=== PATIENT | male | born 1940 | race Caucasian/White ===

== ENCOUNTER 2016-09-19 09:51 | Emergency (ER) | payer OTHER ==
[~2016-09-19] VITALS: Ht 185.4 cm; Wt 113.4 kg
[~2016-09-19 09:51] MED LIST: ECO81 PO; GLIP10TA74 PO; INSU100V9 SUBCUT; LISI-600 PO; METF-510 PO; SIMV20TA6 PO; TERA5CAP58 PO; TRAM100T13 PO
[2016-09-19 09:55] VITALS: BP_SYST 156
--- NOTE | 2016-09-19 10:00 | NUR ---
Pt placed to ER bed 05 and report given to JACQUELINE Olmstead.
--- NOTE | 2016-09-19 10:05 | NUR ---
Patient in stable condition, alert and oriented x4. States has had right foot blistering for one month that began to hurt this AM. Right foot (inner lateral) has redness with white/brown blistering and swelling, blister draining small amount of serosangenous fluid. Patient arrived to ER with gauze and tape dressing he placed at home, removed prior to observation. Bilateral lower extremites have 3+ pitting edema. Bilateral pedal pulses present and strong, able to wiggle all fingers freely, sensation present, no numbess or tingling per patient. No other complaints/injuries per patient or noted.
--- NOTE | 2016-09-19 10:16 | NUR ---
ER Dr. Guerrero at bedside examining patient.
[2016-09-19] MEDS ORDERED: HYDR-4100 PO (10:30)
--- NOTE | 2016-09-19 10:30 | NUR ---
Medication reconciliation completed with information provided by family. Any prior medication reconciliation on file was reviewed and corrected.
[2016-09-19 10:55] LABS: BASOPHILS # (AUTO) 0.1 K/uL (0.0-0.2); BASOPHILS % (AUTO) 1.6 % (0.0-2.0); EOSINOPHILS # (AUTO) 0.1 K/uL (0.0-0.4); EOSINOPHILS % (AUTO) 1.4 % (0.0-4.0); HEMATOCRIT 37.4 % (36-54); HEMOGLOBIN 12.5 g/dL (14.0-18.0); LYMPHOCYTES # (AUTO) 0.9 K/uL (1.0-5.5); LYMPHOCYTES % (AUTO) 12.3 % (20.5-51.5); MEAN CORPUSCULAR HEMOGLOBIN 29 pg (27-31); MEAN CORPUSCULAR HGB CONC 33 % (32-36); MEAN CORPUSCULAR VOLUME 86 fL (79.0-98.0); MONOCYTES # (AUTO) 0.6 K/uL (0.0-1.0); MONOCYTES % (AUTO) 8.6 % (1.7-9.3); NEUTROPHILS # (AUTO) 5.6 K/uL (1.8-7.7); NEUTROPHILS % (AUTO) 76.1 % (40.0-70.0); PLATELET COUNT (AUTO) 143 K/uL (130-430); RED BLOOD CELL COUNT(AUTO) 4.36 MIL/uL (4.2-6.2); RED CELL DISTRIBUTION WIDTH 14.1 % (9.0-15.0); WHITE BLOOD COUNT (AUTO) 7.3 K/uL (4.8-10.8)
[2016-09-19 11:00] LABS: ACETONE, SERUM SMALL (NEGATIVE)
[2016-09-19 11:01] LABS: ANION GAP 7 (5-15); C-REACTIVE PROTEIN QUANT 5.2 mg/dL (0-0.5); CALCIUM 9.2 mg/dL (8.4-11.0); CHLORIDE 98 mmol/L (98-107); CREATININE 1.61 mg/dL (0.55-1.30); GLUCOSE 372 mg/dL (70-99); POTASSIUM 5.3 mmol/L (3.5-5.1); SODIUM SERUM 130 mmol/L (136-145); UREA NITROGEN, BLOOD 32 mg/dL (8-21)
[2016-09-19 11:54] LABS: ERYTHROCYTE SEDIMENTATION RATE 18 MM/HR (0-15)
[2016-09-19] MEDS ORDERED: INSULIN REGULAR, HUMAN 10 UNITS/0.1 ML INJ SUBCUT ONE (12:00)
[2016-09-19] MEDS ORDERED: INSULIN REGULAR, HUMAN 10 UNITS/0.1 ML INJ IVP ONE (12:15)
--- NOTE | 2016-09-19 12:30 | NUR ---
Per Dr Guerrero's verbal order, right foot (inner lateral with blisters) cleansed with betadine, gently patted dry, covered with non sticking foam dressing, covered with kerlix wrap and secured. No active bleeding or drainage at this time. Blister culture per Dr. Guerrero's order.
--- NOTE | 2016-09-19 13:17 | NUR ---
Patient provided with diabetic food tray due to being hungry, blood sugar rechecked prior to (see intervention). Dr. Guerrero notified of blood sugar-stated okay to eat diabetic tray.
[2016-09-19 13:45] VITALS: BP_SYST 145
--- NOTE | 2016-09-19 13:45 | NUR ---
Patient given written and verbal discharge instructions and verbalizes understanding. ER MD discussed with patient the results and treatment provided. Patient in stable condition. ID arm band removed. IV catheter removed intact and dressing applied, no active bleeding. Rx of Lantus, Augementin and Septra given. Patient educated on pain management and to follow up with PMD and strand galvanizer in 1-2 days. Opportunity for questions provided and answered.
== END 2016-09-19 13:45 | disposition home or self-care (01) ==
LOC: SED 09:51
DX: L03.115 Cellulitis of right lower limb (principal); E11.65 Type 2 diabetes mellitus with hyperglycemia; E87.5 Hyperkalemia; I10 Essential (primary) hypertension; Z79.4 Long term (current) use of insulin; Z88.5 Allergy status to narcotic agent; Z87.891 Personal history of nicotine dependence
CPT/HCPCS: 36415; 73630; 80048; 82009; 82962; 85025; 85651; 86140; 96374; 99285; J1815

== ENCOUNTER 2016-09-27 23:11 | Emergency (ER) | payer OTHER ==
[~2016-09-27] VITALS: Ht 185.4 cm; Wt 113.4 kg
[~2016-09-27 23:11] MED LIST changes: +BRE5 PO; +GLIP5TAB76 PO; +HYDR-4100 PO; +METF-305 PO; +NIFE-2 PO
[2016-09-27 23:30] VITALS: BP 128/76; PULSE 83; RESP 17; TEMP 98; O2SAT 99
--- NOTE | 2016-09-27 23:30 | NUR ---
Placed in room 02 . Placed on pvc monitor, blood pressure machine and pulse oximeter. To gown for exam. Side rails up. Report given to JACQUELINE Jarvis.
--- NOTE | 2016-09-27 23:35 | NUR ---
PATIENT AAO X4, SITTING IN BED, BROUGHT IN BY SON FOR C/O PAIN TO BACK OF NECK X 1 DAY. PATIENT STATED HE TOOK NORCO 5/325 MG FOR LEFT CHRONIC SHOULDER PAIN AND NECK PAIN. NO RELIEF. DENIES N/V/D. DENIES CHEST PAIN. DENIES SHORTNESS OF BREATH. NO ACUTE DISTRESS NOTED. WILL CONTINUE TO MONITOR.
--- NOTE | 2016-09-27 23:45 | NUR ---
MARQUES Fontenot at bedside examining patient.
[2016-09-28 00:21] LABS: BASOPHILS # (AUTO) 0.1 K/uL (0.0-0.2); BASOPHILS % (AUTO) 0.8 % (0.0-2.0); EOSINOPHILS # (AUTO) 0.1 K/uL (0.0-0.4); EOSINOPHILS % (AUTO) 1.5 % (0.0-4.0); HEMATOCRIT 37.5 % (36-54); HEMOGLOBIN 12.4 g/dL (14.0-18.0); LYMPHOCYTES # (AUTO) 1.2 K/uL (1.0-5.5); LYMPHOCYTES % (AUTO) 14.1 % (20.5-51.5); MEAN CORPUSCULAR HEMOGLOBIN 29 pg (27-31); MEAN CORPUSCULAR HGB CONC 33 % (32-36); MEAN CORPUSCULAR VOLUME 87 fL (79.0-98.0); MONOCYTES # (AUTO) 0.7 K/uL (0.0-1.0); MONOCYTES % (AUTO) 7.7 % (1.7-9.3); NEUTROPHILS # (AUTO) 6.7 K/uL (1.8-7.7); NEUTROPHILS % (AUTO) 75.9 % (40.0-70.0); PLATELET COUNT (AUTO) 204 K/uL (130-430); RED BLOOD CELL COUNT(AUTO) 4.32 MIL/uL (4.2-6.2); RED CELL DISTRIBUTION WIDTH 13.6 % (9.0-15.0); WHITE BLOOD COUNT (AUTO) 8.8 K/uL (4.8-10.8)
[2016-09-28 00:42] LABS: ANION GAP 6 (5-15); CALCIUM 9.4 mg/dL (8.4-11.0); CHLORIDE 102 mmol/L (98-107); CREATININE 1.92 mg/dL (0.55-1.30); GLUCOSE 272 mg/dL (70-99); SODIUM SERUM 134 mmol/L (136-145); UREA NITROGEN, BLOOD 44 mg/dL (8-21)
[2016-09-28 00:51] LABS: ALANINE AMINOTRANSFERASE 22 U/L (12-78); ALBUMIN 3.5 g/dL (3.4-4.8); ASPARTATE AMINOTRANSFERASE 15 U/L (10-37); TOTAL BILIRUBIN 0.3 mg/dL (0.0-1.0); TOTAL PROTEIN, SERUM 7.1 g/dL (6.4-8.3)
[2016-09-28 00:52] LABS: POTASSIUM 5.5 mmol/L (3.5-5.1)
[2016-09-28] MEDS ORDERED: NACL 0.9% 1,000 ML IV ONE (01:00)
[2016-09-28] MEDS ORDERED: LORazepam 2 MG/ML VIAL (FOR ER USE) IVP ONE (02:45)
[2016-09-28 03:36] VITALS: BP 134/76; PULSE 86; RESP 17; TEMP 98; O2SAT 99
--- NOTE | 2016-09-28 03:36 | NUR ---
Patient given written and verbal discharge instructions and verbalizes understanding. ER MD discussed with patient the results and treatment provided. Patient in stable condition. ID arm band removed. IV catheter removed intact and dressing applied, no active bleeding. Patient educated on pain management and to follow up with PMD. Pain Scale 2/10. Opportunity for questions provided and answered.
== END 2016-09-28 03:30 | disposition home or self-care (01) ==
LOC: SED 23:11
DX: G89.29 Other chronic pain (principal); M25.512 Pain in left shoulder; M54.2 Cervicalgia; E11.9 Type 2 diabetes mellitus without complications; I10 Essential (primary) hypertension; Z79.4 Long term (current) use of insulin; Z79.82 Long term (current) use of aspirin; Z88.5 Allergy status to narcotic agent
CPT/HCPCS: 36415; 80053; 84484; 85025; 93005; 96361; 96374; 99285; J2060; J7030

== ENCOUNTER 2020-11-19 08:47 | Inpatient (IN) | payer OTHER, MEDICAID, SELFPAY ==
[~2020-11-19] VITALS: Ht 182.9 cm; Wt 70.3 kg
[~2020-11-19 08:47] MED LIST changes: -BRE5 PO; +GLIP10TA3 PO; -GLIP10TA74 PO; -GLIP5TAB76 PO; +HYDR-3927 PO; -HYDR-4100 PO; -LISI-600 PO; +LISI20TA30 PO; -METF-305 PO; -METF-510 PO; +METF-518 PO; -NIFE-2 PO; +SIMV-43 PO; -SIMV20TA6 PO; +TERA5CAP4 PO; -TERA5CAP58 PO; -TRAM100T13 PO; +TRAM100T34 PO
[2020-11-19 08:50] VITALS: BP_SYST 109
[2020-11-19 09:22] LABS: BASOPHILS % (AUTO) 0.2 % (0.0-2.0); EOSINOPHILS % (AUTO) 0.1 % (0.0-4.0); HEMATOCRIT 40.1 % (36-54); HEMOGLOBIN 13.4 g/dL (14.0-18.0); LYMPHOCYTES # (AUTO) 0.7 K/uL (1.0-5.5); LYMPHOCYTES % (AUTO) 7.8 % (20.5-51.5); MEAN CORPUSCULAR HEMOGLOBIN 30 pg (27-31); MEAN CORPUSCULAR HGB CONC 33 % (32-36); MEAN CORPUSCULAR VOLUME 90 fL (79.0-98.0); MONOCYTES # (AUTO) 0.4 K/uL (0.0-1.0); MONOCYTES % (AUTO) 4.9 % (1.7-9.3); NEUTROPHILS # (AUTO) 7.3 K/uL (1.8-7.7); PLATELET COUNT (AUTO) 136 K/uL (130-430); RED BLOOD CELL COUNT(AUTO) 4.45 MIL/uL (4.2-6.2); RED CELL DISTRIBUTION WIDTH 14.3 % (9.0-15.0); WHITE BLOOD COUNT (AUTO) 8.4 K/uL (4.8-10.8)
[2020-11-19] MEDS ORDERED: PANTOPRAZOLE SODIUM 40 MG/VIAL (PROTONIX) IVP ONE ×2 (09:30→12:30)
[2020-11-19] MEDS ORDERED: ONDANSETRON HCL 4 MG/2 ML VIAL IVP ONE (09:30)
[2020-11-19] MEDS ORDERED: FERR236T3 PO (09:34)
[2020-11-19] MEDS ORDERED: CALC200T28 PO (09:34)
[2020-11-19] MEDS ORDERED: ASCO500T20 PO (09:34)
[2020-11-19] MEDS ORDERED: SSREG SUBCUT (09:34)
[2020-11-19] MEDS ORDERED: GLIP5TAB13 PO (09:34)
[2020-11-19] MEDS ORDERED: TAMS-11 PO (09:34)
[2020-11-19] MEDS ORDERED: OMEG-158 PO (09:34)
[2020-11-19] MEDS ORDERED: MULT-1117 PO (09:34)
[2020-11-19] MEDS ORDERED: ACET325T53 PO (09:34)
[2020-11-19] MEDS ORDERED: MEGE20TA6 PO (09:34)
[2020-11-19] MEDS ORDERED: BISA10SU61 RC (09:34)
[2020-11-19] MEDS ORDERED: DOCU250C14 PO (09:34)
[2020-11-19] MEDS ORDERED: FAMO20VI IV (09:34)
[2020-11-19] MEDS ORDERED: TRAM50TA2 PO (09:34)
[2020-11-19 09:38] LABS: ANION GAP 14 (5-15); CALCIUM 9.8 mg/dL (8.4-11.0); CHLORIDE 104 mmol/L (98-107); CREATININE 1.77 mg/dL (0.55-1.30); GLUCOSE 251 mg/dL (70-99); POTASSIUM 3.9 mmol/L (3.5-5.1); SODIUM SERUM 140 mmol/L (136-145); UREA NITROGEN, BLOOD 49 mg/dL (8-21)
[2020-11-19 09:46] LABS: ALANINE AMINOTRANSFERASE 26 U/L (12-78); ALBUMIN 3.2 g/dL (3.4-4.8); ASPARTATE AMINOTRANSFERASE 16 U/L (10-37); BILIRUBIN,DIRECT 0.3 mg/dL (0.0-0.3); LIPASE 32 U/L (73-393)
[2020-11-19 09:53] LABS: TOTAL BILIRUBIN 1.3 mg/dL (0.0-1.0)
[2020-11-19 10:00] LABS: INR 1.1 (0.80-1.20); PROTHROMBIN TIME 10.8 SECS (9.5-12.5)
[2020-11-19] MEDS ORDERED: KCL 20 mEq in D5/0.45NS 1000mL 1,000 ML IV ONE (10:15)
[2020-11-19] MEDS ORDERED: BISACODYL 10 MG/SUPPOSITORY RC ONE (12:30)
[2020-11-19] MEDS ORDERED: MINERAL OIL 133 ML ENEMA RC ONE (12:30)
[2020-11-19 14:17] VITALS: BP_SYST 144
[2020-11-19] MEDS ORDERED: BISACODYL 10 MG/SUPPOSITORY RC PRN (17:45)
[2020-11-19] MEDS ORDERED: ACETAMINOPHEN 325 MG TABLET PO PRN (17:45)
[2020-11-19] MEDS: KCL 20 mEq in 0.45% NS 1000 mL 1,000 ML IV SCH ×2 (18:00→22:15)
[2020-11-19] MEDS: LUBIPROSTONE 24 MCG CAPSULE PO SCH (21:00)
[2020-11-19] MEDS: TERAZOSIN HCL 5 MG CAPSULE (HYTRIN) PO SCH (21:00)
[2020-11-19 21:39] VITALS: BP_SYST 116
[2020-11-19] MEDS ORDERED: KCL 20 mEq in 0.45% NS 1000 mL 1,000 ML IV ONE (22:11)
[2020-11-19] MEDS: INSULIN REGULAR, HUMAN 100 UNITS/ML, 10 ML VIAL (humuLIN R) SUBCUT PRN (22:23)
[2020-11-20 00:55] VITALS: BP_SYST 118
[2020-11-20] MEDS: KCL 20 mEq in 0.45% NS 1000 mL 1,000 ML IV SCH ×3 (04:00→21:53)
[2020-11-20] MEDS: INSULIN REGULAR, HUMAN 100 UNITS/ML, 10 ML VIAL (humuLIN R) SUBCUT PRN ×3 (06:32→21:55)
[2020-11-20 06:56] LABS: INR 1.1 (0.80-1.20); PROTHROMBIN TIME 11.3 SECS (9.5-12.5)
[2020-11-20 06:59] LABS: BASOPHILS % (AUTO) 0.1 % (0.0-2.0); EOSINOPHILS % (AUTO) 0.1 % (0.0-4.0); HEMATOCRIT 37.7 % (36-54); HEMOGLOBIN 12.9 g/dL (14.0-18.0); LYMPHOCYTES % (AUTO) 11.9 % (20.5-51.5); MEAN CORPUSCULAR HEMOGLOBIN 31 pg (27-31); MEAN CORPUSCULAR HGB CONC 34 % (32-36); MEAN CORPUSCULAR VOLUME 90 fL (79.0-98.0); MONOCYTES # (AUTO) 0.6 K/uL (0.0-1.0); MONOCYTES % (AUTO) 7.4 % (1.7-9.3); NEUTROPHILS # (AUTO) 6.5 K/uL (1.8-7.7); NEUTROPHILS % (AUTO) 80.5 % (40.0-70.0); PLATELET COUNT (AUTO) 161 K/uL (130-430); RED CELL DISTRIBUTION WIDTH 14.6 % (9.0-15.0); WHITE BLOOD COUNT (AUTO) 8.1 K/uL (4.8-10.8)
[2020-11-20 07:33] LABS: ALANINE AMINOTRANSFERASE 18 U/L (12-78); ANION GAP 13 (5-15); ASPARTATE AMINOTRANSFERASE 12 U/L (10-37); CALCIUM 9.2 mg/dL (8.4-11.0); CHLORIDE 107 mmol/L (98-107); CREATININE 1.48 mg/dL (0.55-1.30); GLUCOSE 202 mg/dL (70-99); PHOSPHORUS 2.9 mg/dL (2.7-4.5); SODIUM SERUM 141 mmol/L (136-145); TOTAL BILIRUBIN 1.3 mg/dL (0.0-1.0); UREA NITROGEN, BLOOD 46 mg/dL (8-21)
[2020-11-20 08:03] VITALS: BP_SYST 145
[2020-11-20] MEDS: TAMSULOSIN HCL 0.4 MG CAP PO SCH (08:32)
[2020-11-20] MEDS: MULTIVITAMINS TAB 1 TABLET PO SCH (08:32)
[2020-11-20] MEDS: LUBIPROSTONE 24 MCG CAPSULE PO SCH ×2 (08:32→21:53)
[2020-11-20] MEDS: BISACODYL 10 MG/SUPPOSITORY RC SCH (08:33)
[2020-11-20] MEDS: ASCORBIC ACID 500 MG TABLET PO SCH (08:33)
[2020-11-20] MEDS: DOCUSATE SODIUM 250 MG CAPSULE PO SCH (08:33)
[2020-11-20] MEDS: PANTOPRAZOLE SODIUM 40 MG/VIAL (PROTONIX) IVP SCH (08:33)
[2020-11-20] MEDS ORDERED: MAGNESIUM CITRATE 300 ML ORAL SOLUTION PO ONE (09:45)
[2020-11-20] MEDS ORDERED: LACTULOSE 20 GM/30 ML UDC PO ONE (09:45)
[2020-11-20] MEDS ORDERED: BISACODYL 5 MG TABLET.DR (DULCOLAX) PO ONE (09:45)
[2020-11-20 12:05] VITALS: BP_SYST 136
[2020-11-20] MEDS: LACTULOSE 20 GM/30 ML UDC PO SCH ×2 (14:52→21:52)
[2020-11-20 16:13] VITALS: BP_SYST 128
[2020-11-20 21:00] VITALS: BP_SYST 129
[2020-11-20] MEDS: TERAZOSIN HCL 5 MG CAPSULE (HYTRIN) PO SCH (21:53)
[2020-11-21 02:28] VITALS: BP_SYST 120
[2020-11-21] MEDS: INSULIN REGULAR, HUMAN 100 UNITS/ML, 10 ML VIAL (humuLIN R) SUBCUT PRN ×2 (06:04→21:48)
[2020-11-21 06:45] LABS: ANION GAP 13 (5-15); CALCIUM 9.4 mg/dL (8.4-11.0); CHLORIDE 107 mmol/L (98-107); CREATININE 1.33 mg/dL (0.55-1.30); GLUCOSE 233 mg/dL (70-99); POTASSIUM 3.8 mmol/L (3.5-5.1); SODIUM SERUM 140 mmol/L (136-145); UREA NITROGEN, BLOOD 44 mg/dL (8-21)
[2020-11-21 06:56] LABS: BASOPHILS % (AUTO) 0.2 % (0.0-2.0); EOSINOPHILS % (AUTO) 0.1 % (0.0-4.0); HEMATOCRIT 40.4 % (36-54); HEMOGLOBIN 13.7 g/dL (14.0-18.0); LYMPHOCYTES # (AUTO) 1.1 K/uL (1.0-5.5); LYMPHOCYTES % (AUTO) 12.8 % (20.5-51.5); MEAN CORPUSCULAR HEMOGLOBIN 31 pg (27-31); MEAN CORPUSCULAR HGB CONC 34 % (32-36); MEAN CORPUSCULAR VOLUME 90 fL (79.0-98.0); MONOCYTES # (AUTO) 0.5 K/uL (0.0-1.0); MONOCYTES % (AUTO) 6.1 % (1.7-9.3); NEUTROPHILS # (AUTO) 7.2 K/uL (1.8-7.7); NEUTROPHILS % (AUTO) 80.8 % (40.0-70.0); PLATELET COUNT (AUTO) 170 K/uL (130-430); RED CELL DISTRIBUTION WIDTH 14.2 % (9.0-15.0); WHITE BLOOD COUNT (AUTO) 8.9 K/uL (4.8-10.8)
[2020-11-21 08:26] VITALS: BP_SYST 102
[2020-11-21] MEDS: LACTULOSE 20 GM/30 ML UDC PO SCH ×3 (09:28→21:36)
[2020-11-21] MEDS: BISACODYL 10 MG/SUPPOSITORY RC SCH (09:28)
[2020-11-21] MEDS: PANTOPRAZOLE SODIUM 40 MG/VIAL (PROTONIX) IVP SCH (09:28)
[2020-11-21] MEDS: TAMSULOSIN HCL 0.4 MG CAP PO SCH (09:29)
[2020-11-21] MEDS: MULTIVITAMINS TAB 1 TABLET PO SCH (09:29)
[2020-11-21] MEDS: ASCORBIC ACID 500 MG TABLET PO SCH (09:29)
[2020-11-21] MEDS: DOCUSATE SODIUM 250 MG CAPSULE PO SCH (09:29)
[2020-11-21] MEDS: LUBIPROSTONE 24 MCG CAPSULE PO SCH ×2 (09:29→21:36)
[2020-11-21 12:14] VITALS: BP_SYST 98
[2020-11-21] MEDS: KCL 20 mEq in 0.45% NS 1000 mL 1,000 ML IV SCH ×2 (15:56→20:00)
[2020-11-21 16:06] VITALS: BP_SYST 101
[2020-11-21 21:00] VITALS: BP_SYST 135
[2020-11-21] MEDS: ONDANSETRON HCL 4 MG/2 ML VIAL IVP SCH (21:36)
[2020-11-21] MEDS: TERAZOSIN HCL 5 MG CAPSULE (HYTRIN) PO SCH (21:42)
[2020-11-22] MEDS: KCL 20 mEq in 0.45% NS 1000 mL 1,000 ML IV SCH ×3 (01:59→22:38)
[2020-11-22] MEDS: INSULIN REGULAR, HUMAN 100 UNITS/ML, 10 ML VIAL (humuLIN R) SUBCUT PRN ×3 (06:37→20:46)
[2020-11-22 07:45] VITALS: BP_SYST 109
[2020-11-22] MEDS: MULTIVITAMINS TAB 1 TABLET PO SCH (09:58)
[2020-11-22] MEDS: TAMSULOSIN HCL 0.4 MG CAP PO SCH (09:58)
[2020-11-22] MEDS: LACTULOSE 20 GM/30 ML UDC PO SCH ×3 (09:58→20:43)
[2020-11-22] MEDS: BISACODYL 10 MG/SUPPOSITORY RC SCH (09:58)
[2020-11-22] MEDS: PANTOPRAZOLE SODIUM 40 MG/VIAL (PROTONIX) IVP SCH (09:58)
[2020-11-22] MEDS: LUBIPROSTONE 24 MCG CAPSULE PO SCH ×2 (09:58→20:43)
[2020-11-22] MEDS: DOCUSATE SODIUM 250 MG CAPSULE PO SCH (09:58)
[2020-11-22] MEDS: ASCORBIC ACID 500 MG TABLET PO SCH (09:58)
[2020-11-22 12:46] VITALS: BP_SYST 95
[2020-11-22 15:49] VITALS: BP_SYST 124
[2020-11-22 20:00] VITALS: BP_SYST 119
[2020-11-22] MEDS: TERAZOSIN HCL 5 MG CAPSULE (HYTRIN) PO SCH (20:43)
[2020-11-23 00:51] VITALS: BP_SYST 105
[2020-11-23] MEDS: INSULIN REGULAR, HUMAN 100 UNITS/ML, 10 ML VIAL (humuLIN R) SUBCUT PRN ×2 (05:40→17:39)
[2020-11-23 08:00] VITALS: BP_SYST 112
[2020-11-23] MEDS: KCL 20 mEq in 0.45% NS 1000 mL 1,000 ML IV SCH ×2 (08:49→18:39)
[2020-11-23] MEDS: PANTOPRAZOLE SODIUM 40 MG/VIAL (PROTONIX) IVP SCH (08:49)
[2020-11-23] MEDS: TAMSULOSIN HCL 0.4 MG CAP PO SCH (09:00)
[2020-11-23] MEDS: ASCORBIC ACID 500 MG TABLET PO SCH (09:00)
[2020-11-23] MEDS: MULTIVITAMINS TAB 1 TABLET PO SCH (09:00)
[2020-11-23] MEDS: LUBIPROSTONE 24 MCG CAPSULE PO SCH ×2 (09:00→21:00)
[2020-11-23] MEDS: DOCUSATE SODIUM 250 MG CAPSULE PO SCH (09:00)
[2020-11-23] MEDS: BISACODYL 10 MG/SUPPOSITORY RC SCH (09:00)
[2020-11-23] MEDS: LACTULOSE 20 GM/30 ML UDC PO SCH ×3 (09:00→21:00)
[2020-11-23 11:29] VITALS: BP_SYST 160
[2020-11-23] MEDS: MINERAL OIL 133 ML ENEMA RC SCH (14:30)
[2020-11-23] MEDS ORDERED: MINERAL OIL 30 ML UDC PO ONE (14:30)
[2020-11-23 16:00] VITALS: BP_SYST 132
[2020-11-23 17:34] VITALS: BP_SYST 137
[2020-11-23 21:00] VITALS: BP_SYST 124
[2020-11-23] MEDS: TERAZOSIN HCL 5 MG CAPSULE (HYTRIN) PO SCH (21:00)
[2020-11-23] MEDS: MINERAL OIL 30 ML UDC PO SCH (21:00)
[2020-11-24 00:12] VITALS: BP_SYST 100
[2020-11-24] MEDS: KCL 20 mEq in 0.45% NS 1000 mL 1,000 ML IV SCH ×2 (06:22→14:35)
[2020-11-24] MEDS: ASCORBIC ACID 500 MG TABLET PO SCH (09:00)
[2020-11-24] MEDS: LUBIPROSTONE 24 MCG CAPSULE PO SCH ×2 (09:00→21:33)
[2020-11-24] MEDS: TAMSULOSIN HCL 0.4 MG CAP PO SCH (09:00)
[2020-11-24] MEDS: MULTIVITAMINS TAB 1 TABLET PO SCH (09:00)
[2020-11-24] MEDS: DOCUSATE SODIUM 250 MG CAPSULE PO SCH (09:00)
[2020-11-24] MEDS: MINERAL OIL 133 ML ENEMA RC SCH (09:00)
[2020-11-24] MEDS: LACTULOSE 20 GM/30 ML UDC PO SCH ×3 (09:00→21:34)
[2020-11-24] MEDS: BISACODYL 10 MG/SUPPOSITORY RC SCH (09:00)
[2020-11-24] MEDS: MINERAL OIL 30 ML UDC PO SCH ×2 (09:00→21:00)
[2020-11-24] MEDS ORDERED: GOLYTELY / COLYTE SOLUTION 4 LITERS NG ONE (09:30)
[2020-11-24] MEDS: METOCLOPRAMIDE HCL 10 MG/2 ML VIAL IVP SCH ×3 (09:30→21:31)
[2020-11-24 11:27] VITALS: BP_SYST 129
[2020-11-24] MEDS: PANTOPRAZOLE SODIUM 40 MG/VIAL (PROTONIX) IVP SCH (12:40)
[2020-11-24 15:45] VITALS: BP_SYST 106
[2020-11-24 20:30] VITALS: BP_SYST 111
[2020-11-24] MEDS: TERAZOSIN HCL 5 MG CAPSULE (HYTRIN) PO SCH (21:33)
[2020-11-25] MEDS: KCL 20 mEq in 0.45% NS 1000 mL 1,000 ML IV SCH ×3 (00:07→19:52)
[2020-11-25 01:32] VITALS: BP_SYST 128
[2020-11-25] MEDS: ONDANSETRON HCL 4 MG/2 ML VIAL IVP SCH (03:51)
[2020-11-25] MEDS: METOCLOPRAMIDE HCL 10 MG/2 ML VIAL IVP SCH (03:56)
[2020-11-25 06:40] LABS: BASOPHILS % (AUTO) 0.3 % (0.0-2.0); EOSINOPHILS # (AUTO) 0.1 K/uL (0.0-0.4); EOSINOPHILS % (AUTO) 1.7 % (0.0-4.0); HEMATOCRIT 35.5 % (36-54); HEMOGLOBIN 12.1 g/dL (14.0-18.0); LYMPHOCYTES # (AUTO) 1.6 K/uL (1.0-5.5); LYMPHOCYTES % (AUTO) 30.9 % (20.5-51.5); MEAN CORPUSCULAR HEMOGLOBIN 30 pg (27-31); MEAN CORPUSCULAR HGB CONC 34 % (32-36); MEAN CORPUSCULAR VOLUME 89 fL (79.0-98.0); MONOCYTES # (AUTO) 0.4 K/uL (0.0-1.0); MONOCYTES % (AUTO) 6.9 % (1.7-9.3); NEUTROPHILS # (AUTO) 3.1 K/uL (1.8-7.7); NEUTROPHILS % (AUTO) 60.2 % (40.0-70.0); PLATELET COUNT (AUTO) 156 K/uL (130-430); RED BLOOD CELL COUNT(AUTO) 3.99 MIL/uL (4.2-6.2); RED CELL DISTRIBUTION WIDTH 13.9 % (9.0-15.0); WHITE BLOOD COUNT (AUTO) 5.2 K/uL (4.8-10.8)
[2020-11-25 06:55] LABS: ANION GAP 16 (5-15); CALCIUM 8.3 mg/dL (8.4-11.0); CHLORIDE 109 mmol/L (98-107); GLUCOSE 115 mg/dL (70-99); PHOSPHORUS 1.8 mg/dL (2.7-4.5); POTASSIUM 4.6 mmol/L (3.5-5.1); SODIUM SERUM 140 mmol/L (136-145); UREA NITROGEN, BLOOD 25 mg/dL (8-21)
[2020-11-25 08:00] VITALS: BP_SYST 120
[2020-11-25] MEDS: LACTULOSE 20 GM/30 ML UDC PO SCH ×3 (09:00→22:14)
[2020-11-25] MEDS: DOCUSATE SODIUM 250 MG CAPSULE PO SCH (09:00)
[2020-11-25] MEDS: BISACODYL 10 MG/SUPPOSITORY RC SCH (09:00)
[2020-11-25] MEDS: TAMSULOSIN HCL 0.4 MG CAP PO SCH (09:00)
[2020-11-25] MEDS: MINERAL OIL 30 ML UDC PO SCH ×2 (09:00→22:14)
[2020-11-25] MEDS: ASCORBIC ACID 500 MG TABLET PO SCH (09:00)
[2020-11-25] MEDS: MULTIVITAMINS TAB 1 TABLET PO SCH (09:00)
[2020-11-25] MEDS: MINERAL OIL 133 ML ENEMA RC SCH (09:00)
[2020-11-25] MEDS: LUBIPROSTONE 24 MCG CAPSULE PO SCH ×2 (09:00→22:14)
[2020-11-25 11:24] VITALS: BP_SYST 114
[2020-11-25] MEDS: PANTOPRAZOLE SODIUM 40 MG/VIAL (PROTONIX) IVP SCH (15:17)
[2020-11-25 15:29] VITALS: BP_SYST 139
[2020-11-25] MEDS ORDERED: fentaNYL CITRATE/PF 100 MCG/2 ML AMP IVP PRN (16:00)
[2020-11-25] MEDS: INSULIN REGULAR, HUMAN 100 UNITS/ML, 10 ML VIAL (humuLIN R) SUBCUT PRN (19:51)
[2020-11-25 20:00] VITALS: BP_SYST 141
[2020-11-25] MEDS: TERAZOSIN HCL 5 MG CAPSULE (HYTRIN) PO SCH (22:15)
[2020-11-26 01:04] VITALS: BP_SYST 101
[2020-11-26] MEDS: KCL 20 mEq in 0.45% NS 1000 mL 1,000 ML IV SCH ×2 (06:25→20:44)
[2020-11-26 06:59] LABS: BASOPHILS % (AUTO) 0.3 % (0.0-2.0); EOSINOPHILS # (AUTO) 0.1 K/uL (0.0-0.4); EOSINOPHILS % (AUTO) 1.8 % (0.0-4.0); HEMATOCRIT 35.2 % (36-54); HEMOGLOBIN 11.8 g/dL (14.0-18.0); LYMPHOCYTES # (AUTO) 1.2 K/uL (1.0-5.5); LYMPHOCYTES % (AUTO) 21.6 % (20.5-51.5); MEAN CORPUSCULAR HEMOGLOBIN 30 pg (27-31); MEAN CORPUSCULAR HGB CONC 34 % (32-36); MEAN CORPUSCULAR VOLUME 89 fL (79.0-98.0); MONOCYTES # (AUTO) 0.5 K/uL (0.0-1.0); MONOCYTES % (AUTO) 8.4 % (1.7-9.3); NEUTROPHILS # (AUTO) 3.9 K/uL (1.8-7.7); NEUTROPHILS % (AUTO) 67.9 % (40.0-70.0); PLATELET COUNT (AUTO) 147 K/uL (130-430); RED BLOOD CELL COUNT(AUTO) 3.94 MIL/uL (4.2-6.2); RED CELL DISTRIBUTION WIDTH 14.2 % (9.0-15.0); WHITE BLOOD COUNT (AUTO) 5.7 K/uL (4.8-10.8)
[2020-11-26 07:01] LABS: INR 1.1 (0.80-1.20); PROTHROMBIN TIME 11.3 SECS (9.5-12.5)
[2020-11-26 08:00] VITALS: BP_SYST 135
[2020-11-26] MEDS: MINERAL OIL 30 ML UDC PO SCH ×2 (08:36→20:31)
[2020-11-26] MEDS: DOCUSATE SODIUM 250 MG CAPSULE PO SCH (08:36)
[2020-11-26] MEDS: TAMSULOSIN HCL 0.4 MG CAP PO SCH (08:36)
[2020-11-26] MEDS: MULTIVITAMINS TAB 1 TABLET PO SCH (08:36)
[2020-11-26] MEDS: LUBIPROSTONE 24 MCG CAPSULE PO SCH ×2 (08:36→20:31)
[2020-11-26] MEDS: LACTULOSE 20 GM/30 ML UDC PO SCH ×3 (08:36→20:31)
[2020-11-26] MEDS: ASCORBIC ACID 500 MG TABLET PO SCH (08:37)
[2020-11-26] MEDS: BISACODYL 10 MG/SUPPOSITORY RC SCH (08:37)
[2020-11-26] MEDS: MINERAL OIL 133 ML ENEMA RC SCH (08:37)
[2020-11-26] MEDS: PANTOPRAZOLE SODIUM 40 MG/VIAL (PROTONIX) IVP SCH (08:49)
[2020-11-26] MEDS ORDERED: SIMETHICONE 40 MG/0.6 ML ML ONE (09:46)
[2020-11-26] MEDS ORDERED: fentaNYL CITRATE/PF 100 MCG/2 ML AMP ONE (09:47)
[2020-11-26] MEDS ORDERED: MIDAZOLAM HCL 5 MG/5 ML VIAL ONE (09:47)
[2020-11-26] MEDS ORDERED: MEPERIDINE 100 MG INJ. 100 MG/ML VIAL ONE (09:47)
[2020-11-26] MEDS ORDERED: POLYETHYLENE GLYCOL 3350, 17 GM/ POWD.PACK PO ONE (12:30)
[2020-11-26 16:30] VITALS: BP_SYST 128
[2020-11-26 20:00] VITALS: BP_SYST 110
[2020-11-26] MEDS: TERAZOSIN HCL 5 MG CAPSULE (HYTRIN) PO SCH (20:31)
[2020-11-27 00:55] VITALS: BP_SYST 108
[2020-11-27] MEDS: KCL 20 mEq in 0.45% NS 1000 mL 1,000 ML IV SCH (05:55)
[2020-11-27 07:57] VITALS: BP_SYST 115
[2020-11-27] MEDS: ASCORBIC ACID 500 MG TABLET PO SCH (08:07)
[2020-11-27] MEDS: MULTIVITAMINS TAB 1 TABLET PO SCH (08:07)
[2020-11-27] MEDS: LACTULOSE 20 GM/30 ML UDC PO SCH ×2 (08:07→15:20)
[2020-11-27] MEDS: PANTOPRAZOLE SODIUM 40 MG/VIAL (PROTONIX) IVP SCH (08:07)
[2020-11-27] MEDS: TAMSULOSIN HCL 0.4 MG CAP PO SCH (08:07)
[2020-11-27] MEDS: LUBIPROSTONE 24 MCG CAPSULE PO SCH (08:07)
[2020-11-27] MEDS: DOCUSATE SODIUM 250 MG CAPSULE PO SCH (08:07)
[2020-11-27] MEDS: MINERAL OIL 30 ML UDC PO SCH (08:08)
[2020-11-27] MEDS: BISACODYL 10 MG/SUPPOSITORY RC SCH (08:19)
[2020-11-27] MEDS ORDERED: POLYETHYLENE GLYCOL 3350, 17 GM/ POWD.PACK PO SCH (09:00)
[2020-11-27] MEDS ORDERED: POLY17PO4 PO (12:28)
[2020-11-27] MEDS ORDERED: Lactulose PO (12:28)
[2020-11-27 12:33] VITALS: BP_SYST 108
[2020-11-27 15:43] VITALS: BP_SYST 101
[2020-11-27 16:13] VITALS: BP_SYST 101
[2020-11-27] MEDS: INSULIN REGULAR, HUMAN 100 UNITS/ML, 10 ML VIAL (humuLIN R) SUBCUT PRN (17:38)
== END 2020-11-27 21:35 | DRG 368 ==
LOC: SED 08:47 → SMU 10:10
PROVIDERS: ADMIT Internal Medicine Hospice and Palliative Medicine; ATTEND Internal Medicine Hospice and Palliative Medicine
PROC: 0DJD8ZZ Inspection of Lower Intestinal Tract, Via Natural or Artificial Opening Endoscopic (ICD-10-PCS; principal; 2020-11-26 11:45)
DX: K21.01 Gastro-esophageal reflux disease with esophagitis, with bleeding (principal); K22.6 Gastro-esophageal laceration-hemorrhage syndrome; N17.0 Acute kidney failure with tubular necrosis; K29.71 Gastritis, unspecified, with bleeding; C18.9 Malignant neoplasm of colon, unspecified; G93.40 Encephalopathy, unspecified; K56.609 Unspecified intestinal obstruction, unspecified as to partial versus complete obstruction; Z66 Do not resuscitate; E86.0 Dehydration; D64.9 Anemia, unspecified; K56.41 Fecal impaction; G20 Parkinson's disease; F02.80 Dementia in other diseases classified elsewhere, unspecified severity, without behavioral disturbance, psychotic disturbance, mood disturbance, and anxiety; K57.90 Diverticulosis of intestine, part unspecified, without perforation or abscess without bleeding; K64.8 Other hemorrhoids; I12.9 Hypertensive chronic kidney disease with stage 1 through stage 4 chronic kidney disease, or unspecified chronic kidney disease; E11.22 Type 2 diabetes mellitus with diabetic chronic kidney disease; Z20.822 Contact with and (suspected) exposure to COVID-19; N18.9 Chronic kidney disease, unspecified; Z51.5 Encounter for palliative care; Z85.038 Personal history of other malignant neoplasm of large intestine; Z90.49 Acquired absence of other specified parts of digestive tract; Z79.891 Long term (current) use of opiate analgesic; Z79.899 Other long term (current) drug therapy
CPT/HCPCS: 36415; 45378; 70450-TC; 71045; 74018; 76376; 80048; 80053; 80076; 82378; 82962; 83690; 83735; 83880; 84100; 84484; 85025; 85610-TC; 85730-TC; 86870; 86886; 86900; 86901; 87081; 92610-GN; 93005; 96361; 96374; 96375; 99285; C9113; J1815; J2175; J2250; J2405; J2765; J3010; J3480; Q9967